=== PATIENT | female | born 1985 | race Hispanic/Latino ===

== ENCOUNTER 2020-06-06 10:16 | Inpatient (IN) | payer MEDICAID ==
[~2020-06-06] VITALS: Ht 149.9 cm; Wt 109.3 kg
[2020-06-06] MEDS ORDERED: ASPIRIN 325 MG TABLET ONE (10:38)
[2020-06-06] MEDS ORDERED: DILTIAZEM HCL 125 MG/25 ML VIAL IV ONE ×2 (10:40→11:01)
[2020-06-06] MEDS ORDERED: SODIUM CHLORIDE 0.9% 100 ML IV ONE (11:01)
[2020-06-06 11:05] LABS: BASOPHILS % (AUTO) 0.2 % (0.0-5.0); EOSINOPHILS % (AUTO) 3.4 % (0.0-8.0); HEMATOCRIT 46.1 % (36-48); LYMPHOCYTES % (AUTO) 42.9 % (21.0-51.0); MEAN CORPUSCULAR HGB CONC 32.8 g/dL (32.0-36.0); MEAN CORPUSCULAR VOLUME 82.3 fL (79-99); MONOCYTES % (AUTO) 4.2 % (3.0-13.0); PLATELET COUNT (AUTO) 249 K/uL (130-400); RED CELL DISTRIBUTION WIDTH 14.2 % (11.0-15.5); WHITE BLOOD COUNT (AUTO) 8.8 K/uL (4.8-10.8)
[2020-06-06 11:24] LABS: ALBUMIN 3.4 g/dL (3.5-5.0); BILIRUBIN,TOTAL 0.2 mg/dL (0.2-1.0); CREATININE 0.8 mg/dL (0.5-1.5); POTASSIUM 3.9 mmol/L (3.5-5.1); TOTAL PROTEIN, SERUM 7.5 g/dL (6.0-8.3)
[2020-06-06 11:54] LABS: INR 0.99 (0.85-1.15); PROTHROMBIN TIME 10.8 SEC (9.6-11.6)
[2020-06-06 11:55] LABS: PARTIAL THROMBOPLASTIN TIME 28.4 SEC (26.3-35.5)
[2020-06-06] MEDS ORDERED: AMIODARONE HCL 360 MG in DEXTROSE 5%-WATER 200 ML IV SCH (12:00)
[2020-06-06] MEDS ORDERED: AMIODARONE HCL 150 MG in DEXTROSE 5%-WATER 100 ML IV SCH (12:00)
[2020-06-06] MEDS ORDERED: AMIODARONE HCL 50 MG/ML 3 ML VIAL ONE (12:02)
[2020-06-06] MEDS ORDERED: LACTULOSE 20 GM/30 ML UDCUP PO PRN (12:30)
[2020-06-06] MEDS ORDERED: ONDANSETRON HCL 4 MG/2 ML VIAL IV PRN (12:30)
[2020-06-06] MEDS ORDERED: ACETAMINOPHEN 325 MG TAB PO PRN (12:30)
[2020-06-06] MEDS ORDERED: ENOXAPARIN SODIUM 100 MG/1 ML SQ ONE (12:43)
[2020-06-06 13:00] LABS: HEMOGLOBIN A1C 5.8 % (4.0-6.0)
[2020-06-06 14:03] LABS: CHOLESTEROL 211 mg/dL (<200); HDL CHOLESTEROL 48 mg/dL (35-85); LDL DIRECT 139 mg/dL (0-99); TRIGLYCERIDES 223 mg/dL (30-200)
[2020-06-06] MEDS ORDERED: GABA-529 PO (15:14)
[2020-06-06] MEDS: ACETAMINOPHEN 325 MG TAB PO PRN ×2 (15:49→20:11)
[2020-06-06] MEDS ORDERED: DEXTROSE 5% IV SCH (18:00)
[2020-06-06] MEDS ORDERED: WATER IV SCH (18:00)
[2020-06-06] MEDS ORDERED: AMIODARONE HCL IV SCH (18:00)
[2020-06-06 19:07] LABS: AMPHET/METH SCREEN,URINE NEGATIVE (NEGATIVE); BARBITURATE SCREEN, URINE NEGATIVE (NEGATIVE); BENZODIAZEPINES SCREEN,URINE NEGATIVE (NEGATIVE); CANNABINOID SCREEN,URINE POSITIVE (NEGATIVE); COCAINE SCREEN,URINE NEGATIVE (NEGATIVE); OPIATE SCREEN,URINE NEGATIVE (NEGATIVE); PHENCYCLIDINE SCREEN,URINE NEGATIVE (NEGATIVE)
[2020-06-06] MEDS: FAMOTIDINE 20MG TAB 20 MG TAB PO SCH (20:02)
[2020-06-06 20:11] VITALS: BP 145/88
[2020-06-06] MEDS ORDERED: ATORVASTATIN CALCIUM 20 MG TABLET PO SCH (21:00)
[2020-06-06 23:21] VITALS: BP 147/79
[2020-06-07 04:17] VITALS: BP 138/73
[2020-06-07 06:08] LABS: BASOPHILS % (AUTO) 0.2 % (0.0-5.0); EOSINOPHILS % (AUTO) 4.3 % (0.0-8.0); HEMATOCRIT 42.8 % (36-48); LYMPHOCYTES % (AUTO) 38.1 % (21.0-51.0); MEAN CORPUSCULAR HEMOGLOBIN 26.7 pg (27.0-33.0); MEAN CORPUSCULAR HGB CONC 32.5 g/dL (32.0-36.0); MEAN CORPUSCULAR VOLUME 82.1 fL (79-99); MONOCYTES % (AUTO) 5.9 % (3.0-13.0); NEUTROPHILS % (AUTO) 51.2 % (40.0-77.0); PLATELET COUNT (AUTO) 232 K/uL (130-400); RED BLOOD CELL COUNT(AUTO) 5.21 MIL/uL (4.00-5.50); RED CELL DISTRIBUTION WIDTH 14.2 % (11.0-15.5); WHITE BLOOD COUNT (AUTO) 9.8 K/uL (4.8-10.8)
[2020-06-07 06:18] LABS: CREATININE 0.8 mg/dL (0.5-1.5); POTASSIUM 3.8 mmol/L (3.5-5.1)
[2020-06-07 06:49] VITALS: BP 127/75
[2020-06-07] MEDS: FAMOTIDINE 20MG TAB 20 MG TAB PO SCH (07:51)
[2020-06-07] MEDS ORDERED: ASPIRIN 325 MG TABLET PO SCH (09:00)
[2020-06-07] MEDS ORDERED: ENOXAPARIN SODIUM 40 MG/0.4 ML SYRINGE SQ SCH (09:00)
[2020-06-07 10:57] VITALS: BP 129/92
[2020-06-07] MEDS ORDERED: AEC81 PO (14:51)
[2020-06-07] MEDS ORDERED: VITA1CAP PO (15:18)
== END 2020-06-07 15:20 | disposition home or self-care (01) | DRG 201 ==
LOC: EDH 10:16 → EDHIP 10:17 → 4CH 14:53
PROVIDERS: ADMIT Family Medicine; ATTEND Family Medicine
DX: I48.0 Paroxysmal atrial fibrillation (principal); E66.01 Morbid (severe) obesity due to excess calories; F41.9 Anxiety disorder, unspecified; Z68.42 Body mass index [BMI] 45.0-49.9, adult; F17.210 Nicotine dependence, cigarettes, uncomplicated; E78.5 Hyperlipidemia, unspecified; E03.9 Hypothyroidism, unspecified; F12.10 Cannabis abuse, uncomplicated; F10.10 Alcohol abuse, uncomplicated; G47.33 Obstructive sleep apnea (adult) (pediatric)
CPT/HCPCS: 36415; 80048; 80053; 80061; 80305; 81025; 82550; 82948; 83036; 83735; 83880; 84443; 84484; 85025; 85378; 85610; 85730; 93005; 93306; 93356; G0378; J0282; J1650; J3490; J7060

== ENCOUNTER 2021-05-12 01:33 | Emergency (ER) | payer MEDICAID ==
[~2021-05-12] VITALS: Ht 149.9 cm; Wt 106.1 kg
[~2021-05-12 01:33] MED LIST: AEC81 PO; GABA-529 PO; VITA1CAP PO
[2021-05-12 02:02] LABS: HEMATOCRIT 42.4 % (36-48); MEAN CORPUSCULAR HEMOGLOBIN 26.7 pg (27.0-33.0); MEAN CORPUSCULAR HGB CONC 32.1 g/dL (32.0-36.0); MEAN CORPUSCULAR VOLUME 83.1 fL (79-99); PLATELET COUNT (AUTO) 218 K/uL (130-400); RED CELL DISTRIBUTION WIDTH 14.4 % (11.0-15.5); WHITE BLOOD COUNT (AUTO) 9.8 K/uL (4.8-10.8)
[2021-05-12 02:12] LABS: CREATININE 0.7 mg/dL (0.5-1.5); POTASSIUM 3.9 mmol/L (3.5-5.1)
[2021-05-12 02:17] LABS: ALBUMIN 3.2 g/dL (3.5-5.0); BILIRUBIN,TOTAL 0.1 mg/dL (0.2-1.0); TOTAL PROTEIN, SERUM 7.1 g/dL (6.0-8.3)
[2021-05-12 02:36] LABS: EOSINOPHILS % (MANUAL) 1 % (1-6); LYMPHOCYTES % (MANUAL) 45 % (22-44); MONOCYTES % (MANUAL) 4 % (2-9); SEGMENTED NEUTROPHILS % 50 % (40-70)
[2021-05-12 02:37] LABS: MAN.DIFF COMMENT-IMPRESSION MANUAL DIFFERENTIAL; PLATELET MORPHOLOGY COMMENT ADEQUATE
[2021-05-12 03:25] VITALS: BP 114/73
== END 2021-05-12 03:27 | disposition home or self-care (01) ==
LOC: EDH 01:33
DX: I47.1 Supraventricular tachycardia (principal); E86.9 Volume depletion, unspecified; F17.200 Nicotine dependence, unspecified, uncomplicated; Z79.82 Long term (current) use of aspirin; Z79.899 Other long term (current) drug therapy
CPT/HCPCS: 36415; 80053; 84484; 85025; 93005